=== PATIENT | female | born 1960 | race Caucasian/White ===

== ENCOUNTER 2018-04-30 20:07 | Inpatient (IN) | payer MEDICAID ==
[~2018-04-30] VITALS: Ht 154.9 cm; Wt 67.7 kg
[~2018-04-30 20:07] MED LIST: ACE3 PO; ACET-3017 PO; ACET650T40 PO; ALB6.7R INH; ALBU2.5V36 IH; ALBU8HFA NEB; AMOX-559 PO; ASPI-1471 PO; ASPI81TA94 PO; AZIT-1 PO; AZIT-17 PO; AZIT-18 PO; AZIT500T47 PO; Azithromycin PO; CAR200 PO; CARB-82 PO; CEFU250 PO; CEFU500T10 PO; CEFU500T50 PO; CEPH-13 PO; CEPH250C37 PO; CEPH500C24 PO; CLOP75TA43 PO; CODE118S5 PO; CYCL10TA29 PO; DIPH-740 PO; DOXY-179 PO; DOXY-228 PO; DUONEB INH; FLUT1DIS27 IH; GUAI-204 PO; GUAI120L3 PO; GUAI600T57 PO; HYDR-3503 PO; HYDR-385 PO; HYDR-653 PO; KET10 PO; LEVO-85 PO; LEVO750T44 PO; LOR5/325 PO; LORA-1455 PO; LORA-630 PO; MONT10TA PO; NAPR500T75 PO; OXYC-823 PO; OXYC-865 PO; OXYC10TA PO; OXYC10TA67 PO; OXYC1TAB54 PO; OXYC5CAP21 PO; OXYC5TAB65 PO; OXYGENHOME INH; PAR20 PO; PRE5 PO; PRED-1 PO; PRED-314 PO; PRED20TA6 PO; PRED50TA22 PO; PROM-110 PO; ROBC PO; SERT-181 PO; SERT-184 PO; SIMV-1 PO; SIMV-44 PO; SIMV-54 PO; SULF-198 PO; TRAM-420 PO; TRAM-627 PO; [UNRECOGNIZED DRUG - CODE] PO; [UNRECOGNIZED DRUG - CODE] PO; [UNRECOGNIZED DRUG - CODE] PO; oxygen
[2018-04-30] MEDS ORDERED: methylPREDNIS SUCC 125 MG/2ML IVP ONE (20:15)
[2018-04-30] MEDS ORDERED: ALBUTEROL/IPRATROPIUM 3 ML NEB NEB ONE ×2 (20:15→21:30)
--- NOTE | 2018-04-30 20:20 | ER Report ---
History and Physical Time Seen By MD: 20:14 HPI/ROS CHIEF COMPLAINT: Short of breath, chest pain HISTORY OF PRESENT ILLNESS: 57-year-old female with a history of COPD who wears O2 at night. Lives in [place] is here visiting her daughter. She previously lived here in [place], but is unable to tolerate altitude now. She's been using oxygen through the mid day. Tonight she developed chest pain just prior to coming to the ER. She admits a history of coronary artery disease diagnosed in [address] Schmid at [facility]. Patient reports having to nuclear treadmill tests. And 2 echoes. She states her ejection fractions down to 40%. Patient however states she's never had a cardiac catheterization. Patient is on Plavix. Patient has pursed lip breathing with increased work respiration. Pulse ox was 84% on room air on arrival. She's placed on supplemental O2 with improvement. Auscultation of lungs reveals gross expiratory wheezing throughout all lung crump. Patient thinks the weather is contributing to her difficulty breathing. REVIEW OF SYSTEMS: Respiratory: As above Cardiovascular: As above Gastrointestinal: No vomiting, no abdominal pain. Musculoskeletal: No back pain. Allergies: Coded Allergies: No Known Drug Allergies (Unverified , 04/30/18) Home Meds Active Scripts Prednisone (PREDNISONE) 20 Mg Tablet, 40 MG PO QDAY for 7 Days, #14 TAB Prov:PHAM DIEZ DO 05/01/18 Reported Medications Atorvastatin (LIPITOR) 80 Mg Tab, 1 TAB PO HS, TAB 04/30/18 Metoprolol Succinate (METOPROLOL SUCCINATE) 25 Mg Tab.er.24h, 1 TAB PO QDAY, TAB 04/30/18 Losartan Potassium (LOSARTAN POTASSIUM) 25 Mg Tablet, 25 MG PO QDAY 04/30/18 Sertraline Hcl (SERTRALINE HCL) 100 Mg Tablet, 1 TAB PO QDAY, TAB 06/07/15 Aspirin (ASPIR 81) 81 Mg Tablet., 81 MG PO QDAY, TAB 04/07/15 Acetaminophen/Codeine (TYLENOL #3 (OR EQUIV)) 1 Ea Tab, 1 EA PO PRN, TAB 03/15/15 Diphenhydramine Hcl (BENADRYL) 25 Mg Capsule, 75 MG PO HS PRN for INSOMNIA, CAPSULE 05/02/14 Montelukast Sodium (SINGULAIR) 10 Mg Tablet, 1 TAB PO QDAY TAKE ONE TABLET BY MOUTH EVERY DAY 05/02/14 Fluticasone/Salmeterol (ADVAIR 100-50 DISKUS) 1 Each Disk.w.dev, 1 EACH IH BID 07/14/13 Albuterol Sulfate (PROVENTIL HFA) 6.7 Gm Inh, 1-2 PUFF INH BID PRN for SHORTNESS OF BREATH, INH 12/12/12 Carbamazepine (TEGRETOL) 200 Mg Tablet, 200 MG PO HS 12/12/12 Clopidogrel Bisulfate (PLAVIX) 75 Mg Tablet, 75 MG PO QAM 07/29/12 Albuterol/Ipratropium (Duoneb) 3 Ml Soln, 3 ML INH BIDR 06/29/12 Carbamazepine (TEGretol (OR EQUIV)) 200 Mg Tab, 200 MG PO QAM 06/29/12 Discontinued Reported Medications Simvastatin (SIMVASTATIN) 40 Mg Tablet, 40 MG PO HS, TAB 03/15/15 Past Medical/Surgical History History Problems: (1) COPD (chronic obstructive pulmonary disease), uses O2 at night Status: Chronic (2) Seizure Status: Chronic (3) Depression Status: Chronic (4) Hypercholesterolemia Status: Chronic (5) Fibromyalgia syndrome Status: Chronic (6) History of CVA (cerebrovascular accident) Status: Chronic (7) Generalized anxiety disorder Status: Chronic (8) History of cholecystectomy Status: Resolved (9) History of appendectomy Status: Resolved (10) History of hysterectomy Status: Resolved (11) Status post shoulder hemiarthroplasty Status: Resolved (12) Smoking Reviewed Nurses Notes: Yes Old Medical Records Reviewed: Yes Hx Smoking: No Smoking Status: Former Smoker Exposure to Second Hand Smoke?: No Hx Substance Use Disorder: Yes (METH-CLEAN FOR 10 YEARS) Hx Alcohol Use: No Constitutional Vital Sign - Last 24 Hours 04/30/18 04/30/18 04/30/18 04/30/18 20:22 20:23 20:30 20:37 Temp 99.8 Pulse 122 123 117 Resp 21 28 18 B/P (MAP) 125/99 97/85 (89) Pulse Ox 89 83 O2 Delivery Room Air 04/30/18 04/30/18 04/30/18 04/30/18 20:37 20:37 20:38 20:47 Pulse 116 111 Resp 17 18 Pulse Ox 94 O2 Delivery Nasal Cannula O2 Flow Rate 3.0 3.0 04/30/18 04/30/18 04/30/18 04/30/18 20:52 21:07 21:21 21:22 Pulse 110 108 103 Resp 17 27 13 B/P (MAP) 134/91 (105) Pulse Ox 93 94 95 04/30/18 04/30/18 04/30/18 04/30/18 21:29 21:29 21:30 21:36 Pulse 107 107 Resp 18 18 B/P (MAP) 118/83 (95) Pulse Ox 95 O2 Delivery Nasal Cannula O2 Flow Rate 3.0 04/30/18 04/30/18 04/30/18 04/30/18 21:37 21:52 21:57 22:12 Pulse 112 121 115 110 Resp 16 23 38 25 Pulse Ox 100 91 85 91 04/30/18 22:27 Pulse 102 Resp 13 Pulse Ox 95 Physical Exam Vital signs stable, increased respiratory rate, pulse ox 84%, low-grade fever 99.8, tachycardia to the 130s General Appearance: The patient is alert, has no immediate need for airway protection and no current signs of toxicity. Increased work of breathing, obvious respiratory distress, pursed lip breathing, 2-3 word dyspnea HEENT: Pupils equal and round no injection. Oropharynx with mild erythema Respiratory: Chest is non tender, prolonged expiration, expiratory wheezing throughout all lung crump. No Rales, mild chest wall tenderness Cardiac: regular rate and rhythm, no murmur Gastrointestinal: Abdomen is soft and non tender, no masses, bowel sounds normal. Musculoskeletal: Neck: Neck is supple and non tender. No lymphadenopathy, no JVD Extremities have full range of motion and are non tender. No edema, no calf tenderness Skin: No rashes or lesions. DIFFERENTIAL DIAGNOSIS: After history and physical exam differential diagnosis was considered for shortness of breath including but not limited to pulmonary infectious process, COPD, asthma, pulmonary embolus and congestive heart failure. Additionally,chest pain including but not limited to myocardial ischemia, pericarditis pulmonary embolus, chest wall pain, pleural inflammation and pulmonary infectious causes. Medical Decision Making Data Points Result Diagram: 05/01/18 0613 05/01/18 0613 Laboratory Hematology Test 04/30/18 21:00 04/30/18 21:51 Lactate 1.8 mmol/L (0.7-2.1) B-Type Natriuretic Peptide 5 pg/ml (0-100) Carbamazepine (Tegretol) Level < 3.0 ug/ml Carbamazepine Time Since Last Dose unk Carbamazepine Last Dose Date unk D-Dimer Quantitative (PE/DVT) 0.38 ug/ml (0-0.50) Chemistry Test 04/30/18 21:00 04/30/18 21:51 Lactate 1.8 mmol/L (0.7-2.1) B-Type Natriuretic Peptide 5 pg/ml (0-100) Carbamazepine (Tegretol) Level < 3.0 ug/ml Carbamazepine Time Since Last Dose unk Carbamazepine Last Dose Date unk D-Dimer Quantitative (PE/DVT) 0.38 ug/ml (0-0.50) Coagulation Test 04/30/18 21:51 D-Dimer Quantitative (PE/DVT) 0.38 ug/ml Toxicology Test 04/30/18 21:00 Carbamazepine (Tegretol) Level < 3.0 ug/ml Carbamazepine Time Since Last Dose unk Carbamazepine Last Dose Date unk EKG/Imaging EKG Interpretation 12 lead EK Rhythm: normal sinus rhythm [place]: normal QRS: Low voltage QRS ST segments: Nonspecific ST-T wave abnormality, comparison to previous EKG dated 05/26/15, no significant change Imaging X-ray: Two-view chest x-ray was obtained. I viewed the images myself on the PACS system. My interpretation of the images is: TWO VIEW CHEST 04/30/2018 8:14 PM. INDICATION: Respiratory distress. History of COPD. COMPARISON: 05/27/2015. FINDINGS: Lungs are mildly hyperexpanded. The lungs are clear. No pneumothorax or pleural effusion. Heart size is normal. Cholecystectomy clips. Incompletely imaged left shoulder prosthesis. IMPRESSION: Mild hyperexpansion with no acute abnormality. The radiologist interpretation had no clinically significant variation from this interpretation. ED Course/Re-evaluation Clinical Indication for ER IV: IV Access ED Course Patient was admitted to an examination room. H&P was done. The differential diagnoses was considered. Patient was a hard stick. Lab had to stick her numerous times to get blood. He did not get enough for d-dimer. Since she is on Plavix and aspirin. PE seems unlikely. Patient's EKG shows no changes. Her troponins, unremarkable. Patient much improved after a series of nebulizer treatments. Respiratory rates improved. Her work of breathing is returned to near normal. She is requiring 3 L to maintain her saturations in the low 90s. Patient normally wears O2 at night at home. Unfortunately, she is no access to O2 tonight. She cannot return to [place]. Did offer her the option of going home with O2 supplementation but she felt she should be admitted. 04/30/2018 10:23:20 pm case discussed with Dr. Kimberley Hurtado hospitalist on-call, who accepts the patient for admission. Decision to Disposition Date: Apr 30, 2018 Decision to Disposition Time: 22:02 Depart Departure Latest Vital Signs Vital Signs Date Time Temp Pulse Resp B/P (MAP) Pulse Ox O2 Delivery O2 Flow Rate FiO2 04/30/18 22:27 102 13 95 04/30/18 21:30 118/83 (95) 04/30/18 21:29 Nasal Cannula 3.0 04/30/18 20:23 99.8 Impression: Primary Impression: COPD exacerbation Additional Impression: Pleuritic chest pain Condition: Improved Disposition: Admitted from ER Referrals: EMERSON TORRES DO (PCP) New Scripts Prednisone (PREDNISONE) 20 Mg Tablet 40 MG PO QDAY for 7 Days, #14 TAB Prov: PHAM DIEZ DO 05/01/18 Problem Qualifiers DENISHA CRONIN DO Apr 30, 2018 20:20
[2018-04-30 21:14] LABS: PLATELET COUNT, AUTOMATED 255 K/uL (150-450)
--- NOTE | 2018-04-30 21:48 | RADIOLOGY IMAGING REPORT ---
FACILITY: [facility] - [place] PATIENT NAME: Anne Cruz : 1960 MR: [id number] V: [id number] EXAM DATE: ORDERING PHYSICIAN: DENISHA CRONIN TECHNOLOGIST: Location: [facility] [place] Patient: Anne Cruz : 1960 Visit/Account:[id number] Date of Sevice: 04/30/2018 TWO VIEW CHEST 04/30/2018 8:14 PM. INDICATION: Respiratory distress. History of COPD. COMPARISON: 05/27/2015. FINDINGS: Lungs are mildly hyperexpanded. The lungs are clear. No pneumothorax or pleural effusion. Heart size is normal. Cholecystectomy clips. Incompletely imaged left shoulder prosthesis. IMPRESSION: Mild hyperexpansion with no acute abnormality. Report Dictated By: Terrell Negro MD at 04/30/2018 9:43 PM Report E-Signed By: Terrell Negro MD at 04/30/2018 9:44 PM WSN:[id number]
--- NOTE | 2018-04-30 21:54 | EKG ---
FACILITY: [facility] - [place] PATIENT NAME: LISETTE ROSA : [id number] MR: [id number] V: [id number] EXAM DATE: ORDERING PHYSICIAN: DENISHA CRONIN TECHNOLOGIST: AURA Hammond Reason : DYSPNEA AND CP Blood Pressure : / mmHG Vent. Rate : 119 BPM Atrial Rate : 119 BPM P-R Int : 116 ms QRS Dur : 066 ms QT Int : 322 ms P-R-T Axes : 082 079 -34 degrees QTc Int : 452 ms Sinus tachycardia Possible left atrial enlargement Diffuse ST-T changes Artifact in multiple leads - repeat if needed Confirmed by VARGAS SIEGEL ([id number]) on 04/30/2018 10:28:19 PM Referred By: Confirmed By:VARGAS SIEGEL
[2018-04-30 23:09] VITALS: BP 126/91
[2018-04-30] MEDS ORDERED: LOSA25TA57 PO (23:26)
[2018-04-30] MEDS ORDERED: METO25TA23 PO (23:26)
[2018-04-30] MEDS ORDERED: ATR80PT PO (23:26)
[2018-04-30] MEDS ORDERED: NS(*) 0.9% 1000 ML BAG 1,000 ML IV PRN (23:29)
[2018-04-30] MEDS ORDERED: diphenhydrAMINE 25 MG CAP PO PRN (23:30)
[2018-04-30] MEDS ORDERED: ALBUTEROL 2.5 MG/3 ML NEB NEB PRN (23:30)
--- NOTE | 2018-04-30 23:48 | History & Physical ---
History of Present Illness Chief Complaint Short of breath History of Present Illness 57yo female with PMHx significant for COPD, fibromyalgia, depression, HTN, hypercholesterolemia, possible CAD. She reports onset of cough, dyspnea, chest tightness approximately 1-2 days ago. She noted some audible wheezing. She has had some low grade temperature. No chills. No associated GI symptoms - no N/V/diarrhea. She feels exposure to recent storm/low pressure made symptoms worsen. She has smoked in the past, but none for several years. She was exposed to family members who do smoke. She was evaluated in the ER and found to be hypoxic. CXR did not show an obvious infiltrate. Her troponin and d-dimer were normal. She was recommended for admission. History Problems: (1) Substance abuse Status: Chronic (2) Hypertension Status: Chronic (3) Fibromyalgia Status: Chronic (4) Carotid artery stenosis Status: Chronic (5) Intentional carbamazepine overdose Status: Resolved (6) Suicide attempt Status: Resolved (7) Generalized anxiety disorder Status: Chronic (8) Hypercholesterolemia Status: Chronic (9) Fibromyalgia syndrome Status: Chronic (10) History of CVA (cerebrovascular accident) Status: Chronic (11) Shingles Status: Resolved (12) Major depression, recurrent Status: Chronic (13) COPD (chronic obstructive pulmonary disease) Status: Chronic (14) Seizure Status: Chronic (15) Status post shoulder hemiarthroplasty Status: Resolved (16) History of hysterectomy Status: Resolved (17) History of appendectomy Status: Resolved (18) History of cholecystectomy Status: Resolved Home Meds Reported Medications Atorvastatin (LIPITOR) 80 Mg Tab, 1 TAB PO HS, TAB 04/30/18 Metoprolol Succinate (METOPROLOL SUCCINATE) 25 Mg Tab.er.24h, 1 TAB PO QDAY, TAB 04/30/18 Losartan Potassium (LOSARTAN POTASSIUM) 25 Mg Tablet, 25 MG PO QDAY 04/30/18 Sertraline Hcl (SERTRALINE HCL) 100 Mg Tablet, 1 TAB PO QDAY, TAB 06/07/15 Aspirin (ASPIR 81) 81 Mg Tablet.dr, 81 MG PO QDAY, TAB 04/07/15 Acetaminophen/Codeine (TYLENOL #3 (OR EQUIV)) 1 Ea Tab, 1 EA PO PRN, TAB 03/15/15 Diphenhydramine Hcl (BENADRYL) 25 Mg Capsule, 75 MG PO HS PRN for INSOMNIA, CAPSULE 05/02/14 Montelukast Sodium (SINGULAIR) 10 Mg Tablet, 1 TAB PO QDAY TAKE ONE TABLET BY MOUTH EVERY DAY 05/02/14 Fluticasone/Salmeterol (ADVAIR 100-50 DISKUS) 1 Each Disk.w.dev, 1 EACH IH BID 07/14/13 Albuterol Sulfate (PROVENTIL HFA) 6.7 Gm Inh, 1-2 PUFF INH BID PRN for SHORTNESS OF BREATH, INH 12/12/12 Carbamazepine (TEGRETOL) 200 Mg Tablet, 200 MG PO HS 12/12/12 Clopidogrel Bisulfate (PLAVIX) 75 Mg Tablet, 75 MG PO QAM 07/29/12 Albuterol/Ipratropium (Duoneb) 3 Ml Soln, 3 ML INH BIDR 06/29/12 Carbamazepine (TEGretol (OR EQUIV)) 200 Mg Tab, 200 MG PO QAM 06/29/12 Discontinued Reported Medications Simvastatin (SIMVASTATIN) 40 Mg Tablet, 40 MG PO HS, TAB 03/15/15 Allergies: Coded Allergies: No Known Drug Allergies (Unverified , 04/30/18) Patient History: FH: COPD (chronic obstructive pulmonary disease) FATHER FH: Parkinson's disease FATHER FH: bladder cancer FATHER FH: breast cancer BROTHER OR SISTER FH: heart disease MOTHER FH: lung cancer BROTHER OR SISTER, Hx Smoking: Yes Smoking Status: Former Smoker Exposure to Second Hand Smoke?: No Caffeine Intake: Coffee Caffeine/Cups Per Day: 2 Hx Alcohol Use: No Hx Substance Use Disorder: Yes (METH-CLEAN FOR 10 YEARS) Social Drug Use: Former Social Drugs: Meth, Heroin Amount Of Social Drug/s Used: Methanphetamine: daily; Heroine: 4 times in total Review of Systems Constitutional: Fever; No Chills Neurological: No Syncope Cardiovascular: Chest Pain Respiratory: Shortness of Breath, Cough, Wheezing Gastrointestinal: No Nausea, No Vomiting, No Diarrhea, No Hematemesis, No Hematochezia, No Melena, No Abdominal Pain Genitourinary: No Dysuria, No Urinary Incontinence Musculoskeletal: Pain Psychiatric: Depression, Anxiety Exam Vital Signs Vital Signs Date Time Temp Pulse Resp B/P (MAP) Pulse Ox O2 Delivery O2 Flow Rate FiO2 04/30/18 23:09 98.8 94 24 126/91 (103) 96 Nasal Cannula 2.0 General Appearance: Alert, Awake Neuro: No Gross deficits Eyes: PERRLA Cardiovascular: Regular Rate and Rhythm, No Edema, No JVD Respiratory: Other (Decreased breath sounds bilaterally with expiratory wheezes throughout) GI: Abd Soft and Non-Tender : No CVA Tenderness Extremities: Warm, Perfused Integumentary: Skin Intact without Lesion / Mass, Other (tatoos and piercing) Psych: Alert & Oriented X3 Medical Decision Making Data Points Result Diagram: 04/30/18 2100 04/30/182099 Item Value Date Time D-Dimer Quantitative (PE/DVT) 0.38 ug/ml 04/30/182150 Lactate 1.8 mmol/L 04/30/182099 B-Type Natriuretic Peptide 5 pg/ml 04/30/182099 Albumin 4.7 g/dl 04/30/18 2100 Total Protein 7.8 g/dl 04/30/182099 Troponin I < 0.012 ng/ml 04/30/182099 Alkaline Phosphatase 93 U/L 04/30/182099 Alanine Aminotransferase (ALT/SGPT) 19 U/L 04/30/18 2100 Aspartate Amino Transf (AST/SGOT) 24 U/L 04/30/182099 Total Bilirubin 0.6 mg/dl 04/30/18 2100 Calcium Level 9.6 mg/dl 04/30/182099 Carbamazepine (Tegretol) Level < 3.0 ug/ml 04/30/182099 EKG / Imaging EKG Interpretation PATIENT NAME: ANNE ROSA : [id number] MR: [id number] V: [id number] EXAM DATE: ORDERING PHYSICIAN: DENISHA CRONIN TECHNOLOGIST: PANTIER Test Reason : DYSPNEA AND CP Blood Pressure : / mmHG Vent. Rate : 119 BPM Atrial Rate : 119 BPM P-R Int : 116 ms QRS Dur : 066 ms QT Int : 322 ms P-R-T Axes : 082 079 -34 degrees QTc Int : 452 ms Sinus tachycardia Possible left atrial enlargement Diffuse ST-T changes Artifact in multiple leads - repeat if needed Confirmed by VARGAS SIEGEL ([id number]) on 04/30/2018 10:28:19 PM Referred By: Confirmed By:VARGAS SIEGEL Imaging PATIENT NAME: Anne Rosa : 1960 MR: [id number] V: [id number] EXAM DATE: [id number] ORDERING PHYSICIAN: DENISHA CRONIN TECHNOLOGIST: Location: [facility] - [place] Patient: Anne Rosa : 1960 Visit/Account:[id number] Date of Sevice: 04/30/2018 TWO VIEW CHEST 04/30/2018 8:14 PM. INDICATION: Respiratory distress. History of COPD. COMPARISON: 05/27/2015. FINDINGS: Lungs are mildly hyperexpanded. The lungs are clear. No pneumothorax or pleural effusion. Heart size is normal. Cholecystectomy clips. Incompletely imaged left shoulder prosthesis. IMPRESSION: Mild hyperexpansion with no acute abnormality. Report Dictated By: Terrell Negro MD at 04/30/2018 9:43 PM Report E-Signed By: Terrell Negro MD at 04/30/2018 9:44 PM WSN:[id number] Assessment and Plan Problems: (1) COPD exacerbation Status: Acute Assessment & Plan: Due to history of smoking. No infiltrates seen on CXR. Will admit for oxygen supplementation, respiratory treatments, pulse of steroids. (2) Seizure Status: Chronic Assessment & Plan: Continue carbamazepine. (3) Hypercholesterolemia Status: Chronic Assessment & Plan: Continue atorvastatin. (4) Fibromyalgia Status: Chronic Assessment & Plan: She has been managed with antidepressant and Tylenol #3 for acute pain. Will continue same regimen for now. (5) Hypertension Status: Chronic Assessment & Plan: Continue losartan and metoprolol. Monitor BPs. (6) Major depression, recurrent Status: Chronic Assessment & Plan: Continue Zoloft 100mg daily. Venous Thromboembolism Antithrombotics Is Pt On Any Antithrombotics?: Yes Exam Sepsis Risk: No Definite Risk VARGAS SIEGEL MD Apr 30, 2018 23:48
[2018-05-01] MEDS: ACETAMIN/CODEINE #3 300-30 MG PO PRN ×3 (00:16→14:30)
[2018-05-01 03:51] VITALS: BP 93/59
[2018-05-01] MEDS ORDERED: methylPREDNIS SUCC 125 MG/2ML IVP SCH (04:00)
[2018-05-01] MEDS ORDERED: SALMETEROL/FLUTIC 100/50 1 INH INH SCH (06:00)
[2018-05-01 06:25] LABS: PLATELET COUNT, AUTOMATED 261 K/uL (150-450)
[2018-05-01] MEDS: ALBUTEROL/IPRATROPIUM 3 ML NEB NEB SCH ×3 (06:44→13:17)
[2018-05-01 07:29] VITALS: BP 105/76
[2018-05-01] MEDS ORDERED: CLOPIDOGREL BISULFATE 75MG TAB PO SCH (09:00)
[2018-05-01] MEDS ORDERED: SERTRALINE HCL 50 MG TAB PO SCH (09:00)
[2018-05-01] MEDS ORDERED: LOSARTAN POTASSIUM 50 MG TAB PO SCH (09:00)
[2018-05-01] MEDS ORDERED: MONTELUKAST SODIUM 10 MG TAB PO SCH (09:00)
[2018-05-01] MEDS ORDERED: ASPIRIN 81 MG CHEW PO SCH (09:00)
[2018-05-01] MEDS ORDERED: METOPROLOL SUCC XL 25 MG TABCR PO SCH (09:00)
[2018-05-01] MEDS ORDERED: carBAMazepine 200 MG TAB PO SCH (09:00)
[2018-05-01] MEDS ORDERED: predniSONE 20 MG TAB PO SCH (09:00)
[2018-05-01] MEDS ORDERED: ENOXAPARIN 40 MG/0.4ML SYR SC SCH (09:00)
[2018-05-01 09:05] VITALS: Ht 154.9 cm; Wt 67.7 kg
[2018-05-01] MEDS ORDERED: PRED20TA6 PO (12:57)
--- NOTE | 2018-05-01 13:01 | Hospitalist Depart ---
Discharge Summary Reason for Hosp/Final Diag: (1) COPD exacerbation Status: Acute Hospital Course & Plan: Due to history of smoking. No infiltrates seen on CXR. Will admit for oxygen supplementation, respiratory treatments, pulse of steroids. Given respiratory treatments, steroid. Prednisone prescribed for total 7 days. (2) Seizure Status: Chronic Hospital Course & Plan: Continue carbamazepine. (3) Hypercholesterolemia Status: Chronic Hospital Course & Plan: Continue atorvastatin. (4) Fibromyalgia Status: Chronic Hospital Course & Plan: She has been managed with antidepressant and Tylenol #3 for acute pain. (5) Hypertension Status: Chronic Hospital Course & Plan: Continue losartan and metoprolol. Monitor BPs. (6) Major depression, recurrent Status: Chronic Hospital Course & Plan: Continue Zoloft 100mg daily. Departure Weight (Pounds): 149 Weight (Ounces): 3.0 Result Diagram: 05/01/1861205/01/18612 Condition: Improved Discharge Instructions Home Meds Active Scripts Prednisone (PREDNISONE) 20 Mg Tablet, 40 MG PO QDAY for 7 Days, #14 TAB Prov:PHAM DIEZ DO 05/01/18 Reported Medications Atorvastatin (LIPITOR) 80 Mg Tab, 1 TAB PO HS, TAB 04/30/18 Metoprolol Succinate (METOPROLOL SUCCINATE) 25 Mg Tab.er.24h, 1 TAB PO QDAY, TAB 04/30/18 Losartan Potassium (LOSARTAN POTASSIUM) 25 Mg Tablet, 25 MG PO QDAY 04/30/18 Sertraline Hcl (SERTRALINE HCL) 100 Mg Tablet, 1 TAB PO QDAY, TAB 06/07/15 Aspirin (ASPIR 81) 81 Mg Tablet.dr, 81 MG PO QDAY, TAB 04/07/15 Acetaminophen/Codeine (TYLENOL #3 (OR EQUIV)) 1 Ea Tab, 1 EA PO PRN, TAB 03/15/15 Diphenhydramine Hcl (BENADRYL) 25 Mg Capsule, 75 MG PO HS PRN for INSOMNIA, CAPSULE 05/02/14 Montelukast Sodium (SINGULAIR) 10 Mg Tablet, 1 TAB PO QDAY TAKE ONE TABLET BY MOUTH EVERY DAY 05/02/14 Fluticasone/Salmeterol (ADVAIR 100-50 DISKUS) 1 Each Disk.w.dev, 1 EACH IH BID 07/14/13 Albuterol Sulfate (PROVENTIL HFA) 6.7 Gm Inh, 1-2 PUFF INH BID PRN for SHORTNESS OF BREATH, INH 12/12/12 Carbamazepine (TEGRETOL) 200 Mg Tablet, 200 MG PO HS 12/12/12 Clopidogrel Bisulfate (PLAVIX) 75 Mg Tablet, 75 MG PO QAM 07/29/12 Albuterol/Ipratropium (Duoneb) 3 Ml Soln, 3 ML INH BIDR 06/29/12 Carbamazepine (TEGretol (OR EQUIV)) 200 Mg Tab, 200 MG PO QAM 06/29/12 Discontinued Reported Medications Simvastatin (SIMVASTATIN) 40 Mg Tablet, 40 MG PO HS, TAB 03/15/15 Diet: Regular Special Instructions: Complete your steroid course and follow up within one week with your PCP. Copies to: EMERSON TORRES DO ; Venous Thromboembolism Antithrombotics Is Pt On Any Antithrombotics?: Yes PHAM DIEZ DO May 01, 2018 13:01
[2018-05-01] MEDS ORDERED: ATORVASTATIN 40 MG TAB PO SCH (21:00)
== END 2018-05-01 15:03 | disposition home health service (06) | DRG 191 ==
LOC: ER 20:48 → MED 22:34
PROVIDERS: ADMIT Internal Medicine; ATTEND Internal Medicine
DX: J44.1 Chronic obstructive pulmonary disease with (acute) exacerbation (principal); F33.9 Major depressive disorder, recurrent, unspecified; I10 Essential (primary) hypertension; F41.1 Generalized anxiety disorder; M79.7 Fibromyalgia; G40.909 Epilepsy, unspecified, not intractable, without status epilepticus; E78.00 Pure hypercholesterolemia, unspecified; I25.10 Atherosclerotic heart disease of native coronary artery without angina pectoris; Z96.611 Presence of right artificial shoulder joint; Z86.73 Personal history of transient ischemic attack (TIA), and cerebral infarction without residual deficits; Z90.49 Acquired absence of other specified parts of digestive tract; Z90.710 Acquired absence of both cervix and uterus; Z87.891 Personal history of nicotine dependence
CPT/HCPCS: 36415; 71046; 80156; 82040; 82247; 82310; 82374; 82435; 82565; 82947; 83605; 83880; 84075; 84132; 84155; 84295; 84450; 84460; 84484; 84520; 85025; 85379; 93005; 94640; 96374; 99284; J1650; J2930; J7030; J7512; Q0163